=== PATIENT | female | born 1975 | race American Indian/Alaskan Native ===

== ENCOUNTER 2020-08-05 14:01 | Emergency (ER) | payer MEDICAID ==
[2020-08-05 14:56] VITALS: BP 144/99
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
== END 2020-08-05 17:04 | disposition home or self-care (01) ==
LOC: ED 14:01
DX: M54.2 Cervicalgia (principal); G40.909 Epilepsy, unspecified, not intractable, without status epilepticus; J45.909 Unspecified asthma, uncomplicated; Z98.890 Other specified postprocedural states; Z79.899 Other long term (current) drug therapy; Z88.8 Allergy status to other drugs, medicaments and biological substances
CPT/HCPCS: 99281

== ENCOUNTER 2021-04-01 04:41 | Emergency (ER) | payer MEDICAID | END 2021-04-01 06:30 | disposition home or self-care (01) | LOC: ED 04:41 | DX: R51.9 Headache, unspecified (principal); Z53.21 Procedure and treatment not carried out due to patient leaving prior to being seen by health care provider ==

== ENCOUNTER 2022-04-28 14:43 | Emergency (ER) | payer MEDICAID ==
[2022-04-28 16:43] VITALS: BP 129/81
[2022-04-28 18:08] LABS: Hematocrit 33.3 % (30.3-42.9); Hemoglobin 10.2 gm/dl (10.1-14.3); Mean Corpuscular HGB Conc 31 % (30-34); Mean Corpuscular Volume 71 fl (79-97); Platelet Count 266 K/mm3 (140-440); Red Blood Count 4.67 M/mm3 (3.65-5.03); Red Cell Distribution Width 19.8 % (13.2-15.2)
[2022-04-28 18:13] LABS: Alanine Aminotransferase 12 units/L (7-56); Albumin 4.2 g/dL (3.9-5); Blood Urea Nitrogen 6 mg/dL (7-17); Hemolysis Index 1
[2022-04-28 18:14] LABS: BUN/Creatinine Ratio 9
--- NOTE | 2022-04-29 10:35 | Electrocardiograph Report ---
[facility] Test Date: 2022-04-28 Test Time: 16:42:11 Pat Name: JACE ZURITA Department: Room: Gender: F [facility]: ANILA : 1975 Requested By: ANA STRICKLAND Order Number: [id number] Reading MD: Taco Graham Measurements Intervals [place] Rate: 115 P: 46 AL: 143 QRS: -47 QRSD: 88 T: 64 QT: 313 QTc: 432 Interpretive Statements Sinus tachycardia Probable left atrial enlargement Left anterior fascicular block Probable anteroseptal infarct, old No previous ECG available for comparison Electronically Signed On 04-29-2022 10:35:07 EDT by Taco Graham
== END 2022-04-29 19:00 | disposition left against medical advice (07) ==
LOC: ED 14:43
DX: R42 Dizziness and giddiness (principal); R20.2 Paresthesia of skin; Z53.21 Procedure and treatment not carried out due to patient leaving prior to being seen by health care provider
CPT/HCPCS: 36415; 80053; 84484; 84703; 85027; 93005